=== PATIENT | female | born 1960 | race Asian ===

== ENCOUNTER 2017-05-27 21:00 | Emergency (ER) | payer OTHER ==
[~2017-05-27] VITALS: Ht 152.4 cm; Wt 45.0 kg
[2017-05-27 21:18] VITALS: BP 120/71
== END 2017-05-27 23:25 | disposition left against medical advice (07) ==
LOC: EDBD 21:00 → ER 22:25
DX: Z53.21 Procedure and treatment not carried out due to patient leaving prior to being seen by health care provider (principal)